=== PATIENT | male | born 2005 | race Two or more races ===

== ENCOUNTER 2024-12-23 02:11 | Emergency (ER) | payer OTHER ==
[~2024-12-23] VITALS: Ht 190.5 cm; Wt 95.3 kg
[2024-12-23 05:31] VITALS: BP 139/79; TEMP 98.4; O2SAT 99
== END 2024-12-23 04:00 ==
LOC: ER 02:23
DX: S60.012A Contusion of left thumb without damage to nail, initial encounter (principal); X58.XXXA Exposure to other specified factors, initial encounter; Y93.89 Activity, other specified; Y92.89 Other specified places as the place of occurrence of the external cause; Y99.9 Unspecified external cause status
CPT/HCPCS: 73130-TC